=== PATIENT | male | born 1975 | race Caucasian/White ===

== ENCOUNTER 2016-12-11 20:03 | Emergency (ER) | payer BC ==
[~2016-12-11] VITALS: Ht 182.9 cm; Wt 77.1 kg
--- NOTE | 2016-12-11 20:31 | NUR ---
PATIENT WALKED INTO ER C/O RIGHT ANKLE PAIN, STATES HE WAS PLAYING TENNIS AND ACCIDENTLY STEPPED ON A TENNIS BALL AND SPRAINED RIGHT ANKLE 1HR PRIOR TO ARRIVAL. PT IS ALERT, ORIENTED X 4, NO RESP DISTRESS NOTED OR REPORTED UPON ASSESSMENT...MD AT BEDSIDE...
[2016-12-11] MEDS ORDERED: ALPR0.255 PO (20:37)
[2016-12-11] MEDS ORDERED: ATOR10TA PO (20:37)
[2016-12-11] MEDS ORDERED: HYDROCODONE/APAP 5-325MG TABLET PO ONE (21:15)
[2016-12-11] MEDS ORDERED: HYDROCODONE/APAP 5-325MG TABLET ONE (21:26)
[2016-12-11] MEDS ORDERED: IBUPROFEN 800 MG TABLET PO ONE (21:30)
[2016-12-11] MEDS ORDERED: IBUPROFEN 800 MG TABLET ONE (21:41)
[2016-12-11 22:12] VITALS: BP 110/72
--- NOTE | 2016-12-11 22:12 | NUR ---
Patient discharged to home in stable conditon. Written and verbal after care instructions given. Patient verbalizes understanding of instructions. Pt walked out of ER, unassisted by staff, with belongings at side...
== END 2016-12-11 22:13 | disposition home or self-care (01) ==
LOC: ER 20:06
DX: S93.401A Sprain of unspecified ligament of right ankle, initial encounter (principal); E78.5 Hyperlipidemia, unspecified; J45.909 Unspecified asthma, uncomplicated; Z88.1 Allergy status to other antibiotic agents; X58.XXXA Exposure to other specified factors, initial encounter; Y93.89 Activity, other specified; Y99.8 Other external cause status; Y92.89 Other specified places as the place of occurrence of the external cause
CPT/HCPCS: 29515; 73610; 99284; A4663